=== PATIENT | male | born 1965 | race Two or more races ===

== ENCOUNTER 2018-05-02 23:30 | Emergency (ER) | payer SELFPAY ==
[~2018-05-02] VITALS: Ht 165.1 cm; Wt 79.7 kg
[2018-05-02 23:36] VITALS: BP 120/71
== END 2018-05-03 02:27 | disposition home or self-care (01) ==
LOC: ED 05-03 02:00
DX: G89.11 Acute pain due to trauma (principal); M25.531 Pain in right wrist; M25.521 Pain in right elbow; M79.641 Pain in right hand; W01.0XXA Fall on same level from slipping, tripping and stumbling without subsequent striking against object, initial encounter; Y93.89 Activity, other specified; Y92.410 Unspecified street and highway as the place of occurrence of the external cause; Y99.8 Other external cause status
CPT/HCPCS: 99284